=== PATIENT | male | born 1990 ===

== ENCOUNTER 2018-08-06 12:35 | Emergency (ER) | payer SELFPAY ==
[2018-08-06 12:58] VITALS: TEMP 97.5
--- NOTE | 2018-08-06 16:10 | ED PDOC ---
Arrival/HPI - General Chief Complaint: Alcohol Ingestion Historian: EMS - History of Present Illness Narrative History of Present Illness (Text): 08/06/18 16:07 A 36 year old male brought in by EMS to the emergency department for intoxication. Patient's identification is unknown at this time. Limited HPI and ROS secondary to patient's intoxication. Past Medical History - Provider Review Nursing Documentation Reviewed: Yes - Infectious Disease Hx of Infectious Diseases: None - Cardiac Hx Cardiac Disorders: No - Pulmonary Hx Respiratory Disorders: No - Neurological Hx Neurological Disorder: No - Psychiatric Hx Substance Use: No - Anesthesia Hx Anesthesia: No Family/Social History - Physician Review Nursing Documentation Reviewed: Yes Family/Social History: No Known Family HX Smoking Status: Unknown If Ever Smoked Hx Alcohol Use: Yes Hx Substance Use: No Allergies/Home Meds Allergies/Adverse Reactions: Allergies Unobtainable Allergy (Verified 08/06/18 12:59) Review of Systems - Review of Systems Systems not reviewed;Unavailable: Intoxicated Physical Exam Vital Signs Reviewed: Yes Vital Signs Temp Pulse Resp BP Pulse Ox 08/06/18 16:05 78 18 132/88 99 08/06/18 12:53 97.5 F L 76 18 113/60 97 Temperature: Afebrile Blood Pressure: Normal Pulse: Regular Respiratory Rate: Normal Appearance: Positive for: Other (intoxicated) Pain Distress: None Finger Stick Blood Glucose: 118 Medical Decision Making ED Course and Treatment: 08/06/18 16:08 Impression: 36 year old male omi dobbs brought in by EMS for intoxication. Identification currently unknown at this time. Limited information secondary to patient's intoxication. Plan: -- Labs -- Reassess and disposition Progress Notes: 08/06/18 13:00 Patient's glucose level is 118 at this time. 08/06/18 14:54 Patient's EtOH level is 293 at this time. - Lab Interpretations I have reviewed the lab results: Yes - Scribe Statement The provider has reviewed the documentation as recorded by the Darrel Nam Provider Scribe Attestation: All medical record entries made by the Scribe were at my direction and personally dictated by me. I have reviewed the chart and agree that the record accurately reflects my personal performance of the history, physical exam, medical decision making, and the department course for this patient. I have also personally directed, reviewed, and agree with the discharge instructions and disposition. Disposition/Present on Arrival - Present on Arrival History of DVT/PE: No History of Uncontrolled Diabetes: No Urinary Catheter: No History of Decub. Ulcer: No History Surgical Site Infection Following: None - Disposition
--- NOTE | 2018-08-06 20:17 | ED PDOC ---
Physical Exam Vital Signs Temp Pulse Resp BP Pulse Ox 08/06/18 16:05 78 18 132/88 99 08/06/18 12:53 97.5 F L 76 18 113/60 97 Finger Stick Blood Glucose: 118 Medical Decision Making ED Course and Treatment: 08/06/18 19:00 Case endorsed to me by Dr. Funk, pending sobriety, re-evaluation, and disposition. Disposition/Present on Arrival - Present on Arrival Any Indicators Present on Arrival: No History of DVT/PE: No History of Uncontrolled Diabetes: No Urinary Catheter: No History of Decub. Ulcer: No History Surgical Site Infection Following: None - Disposition Have Diagnosis and Disposition been Completed?: Yes Diagnosis: Alcohol abuse Disposition: HOME/ ROUTINE Disposition Time: 03:55 Condition: GOOD Discharge Instructions (ExitCare): Alcohol Use - When Is Drinking a Problem? Forms: [facility] (Slovak)
[2018-08-07 02:19] VITALS: BP 122/63; PULSE 82; RESP 14; O2SAT 97
[2018-08-07 04:13] LABS: BARBITURATES, UR NEGATIVE (NEGATIVE); BENZODIAZEPINES, UR NEGATIVE (NEGATIVE); OPIATES, UR NEGATIVE (NEGATIVE); PHENCYCLIDINE, UR NEGATIVE (NEGATIVE)
== END 2018-08-07 03:57 | disposition home or self-care (01) ==
LOC: ED 12:35
DX: F10.10 Alcohol abuse, uncomplicated (principal)
CPT/HCPCS: 82948; 99284; G0480